=== PATIENT | female | born 1950 | race Caucasian/White ===

== ENCOUNTER 2017-05-02 21:07 | Inpatient (IN) | payer OTHER, MEDICARE ==
[~2017-05-02] VITALS: Ht 154.9 cm; Wt 57.2 kg
[2017-05-02 21:10] VITALS: BP_SYST 134
[2017-05-02] MEDS ORDERED: NIFE-2 PO (21:30)
[2017-05-02] MEDS ORDERED: NACL 0.9% 1,000 ML IV ONE (21:30)
[2017-05-02] MEDS ORDERED: BUPR-120 PO (21:31)
[2017-05-02] MEDS ORDERED: ALPR0.5T96 PO (21:31)
[2017-05-02] MEDS ORDERED: LEVO100T9 PO (21:35)
[2017-05-02 21:57] LABS: EOSINOPHILS % (AUTO) 0.1 % (0.0-4.0); HEMOGLOBIN 11.1 g/dL (12.0-16.0); LYMPHOCYTES # (AUTO) 0.4 K/uL (1.0-5.5); LYMPHOCYTES % (AUTO) 4.9 % (20.5-51.5); MEAN CORPUSCULAR HEMOGLOBIN 33 pg (27-31); MEAN CORPUSCULAR HGB CONC 34 % (32-36); MEAN CORPUSCULAR VOLUME 97 fL (79.0-98.0); MONOCYTES # (AUTO) 0.6 K/uL (0.0-1.0); MONOCYTES % (AUTO) 7.4 % (1.7-9.3); NEUTROPHILS # (AUTO) 7.2 K/uL (1.8-7.7); NEUTROPHILS % (AUTO) 87.6 % (40.0-70.0); PLATELET COUNT (AUTO) 115 K/uL (130-430); RED BLOOD CELL COUNT(AUTO) 3.39 MIL/uL (4.2-6.2); RED CELL DISTRIBUTION WIDTH 12.4 % (9.0-15.0); WHITE BLOOD COUNT (AUTO) 8.2 K/uL (4.8-10.8)
[2017-05-02 21:58] LABS: CREATININE 1.45 mg/dL (0.55-1.30); POTASSIUM 4.1 mmol/L (3.5-5.1)
[2017-05-02 22:03] LABS: ALBUMIN 3.4 g/dL (3.4-4.8); TOTAL BILIRUBIN 0.3 mg/dL (0.0-1.0)
[2017-05-02 22:17] LABS: PROTHROMBIN TIME 10.2 SECS (9.5-12.5)
[2017-05-02] MEDS ORDERED: IPRATROPIUM/ALBUTEROL SULFATE 3 ML AMPUL.NEB INH ONE (22:30)
[2017-05-02 23:28] LABS: BILIRUBIN,URINE NEGATIVE (NEGATIVE); BLOOD, URINE TRACE (NEGATIVE); CLARITY/URINE CLEAR (CLEAR); COLOR,URINE YELLOW (YELLOW); GLUCOSE,URINE NEGATIVE (NEGATIVE); KETONES,URINE NEGATIVE (NEGATIVE); LEUKOCYTE ESTERASE ,URINE 2+ (NEGATIVE); NITRITE, URINE NEGATIVE (NEGATIVE); PH,URINE 5.5 (5.0-8.0); PROTEIN URINE NEGATIVE (NEGATIVE); UROBILINOGEN,URINE 0.2 (0.2-1.0)
[2017-05-02 23:36] LABS: BACTERIA,URINE MODERATE /HPF (None Seen)
[2017-05-03] VITALS (7 sets, daily range): BP systolic 136–185
[2017-05-03] MEDS ORDERED: ENOXAPARIN SODIUM 60 MG/0.6 ML SYRINGE SUBCUT ONE
[2017-05-03] MEDS ORDERED: ACETAMINOPHEN 325 MG TABLET PO ONE
[2017-05-03] MEDS ORDERED: ALPRAZolam 0.25 MG TABLET PO PRN (00:15)
[2017-05-03] MEDS ORDERED: ACETAMINOPHEN 325 MG TABLET PO PRN (00:15)
[2017-05-03] MEDS ORDERED: LEVOTHYROXINE SODIUM 0.1 MG TABLET PO ONE (10:00)
[2017-05-03] MEDS ORDERED: FAMOTIDINE 20 MG TABLET PO ONE (10:00)
[2017-05-03] MEDS ORDERED: buPROPion HCL 150 MG XL TAB PO ONE (10:00)
[2017-05-03] MEDS ORDERED: methylPREDNISolone SOD SUCC/PF 62.5 MG/ML VIAL IVP ONE (13:30)
[2017-05-03] MEDS ORDERED: LEVOFLOXACIN 500 MG/D5W 100 ML IV ONE ×2 (14:00)
[2017-05-03] MEDS ORDERED: LEVOFLOXACIN 250 MG/D5W 50 ML IV ONE (14:00)
[2017-05-03 15:10] LABS: BASOPHILS % (AUTO) 0.1 % (0.0-2.0); EOSINOPHILS % (AUTO) 0.3 % (0.0-4.0); HEMATOCRIT 34.6 % (36-48); HEMOGLOBIN 11.3 g/dL (12.0-16.0); LYMPHOCYTES % (AUTO) 18.2 % (20.5-51.5); MEAN CORPUSCULAR HEMOGLOBIN 32 pg (27-31); MEAN CORPUSCULAR HGB CONC 33 % (32-36); MEAN CORPUSCULAR VOLUME 97 fL (79.0-98.0); MONOCYTES # (AUTO) 0.6 K/uL (0.0-1.0); MONOCYTES % (AUTO) 11.4 % (1.7-9.3); NEUTROPHILS # (AUTO) 3.9 K/uL (1.8-7.7); PLATELET COUNT (AUTO) 116 K/uL (130-430); RED BLOOD CELL COUNT(AUTO) 3.56 MIL/uL (4.2-6.2); RED CELL DISTRIBUTION WIDTH 12.4 % (9.0-15.0); WHITE BLOOD COUNT (AUTO) 5.5 K/uL (4.8-10.8)
[2017-05-03] MEDS: NACL 0.9% 1,000 ML IV SCH (15:16)
[2017-05-03 16:00] LABS: ALBUMIN 3.3 g/dL (3.4-4.8); CALCIUM 9.1 mg/dL (8.4-11.0); CREATININE 1.09 mg/dL (0.55-1.30); POTASSIUM 3.8 mmol/L (3.5-5.1); THYROID STIMULATING HORMONE 0.87 uIu/mL (0.34-4.82); TOTAL BILIRUBIN 0.3 mg/dL (0.0-1.0)
[2017-05-03 16:05] LABS: TOTAL IRON BIND. CAPACITY 341 ug/dL (250-450)
[2017-05-03] MEDS ORDERED: IPRATROPIUM BROM 0.5 MG/2.5 ML VIAL.NEB (ATROVENT) INH PRN (18:15)
[2017-05-03] MEDS ORDERED: ALBUTEROL SULFATE 0.083% 2.5 MG/3 ML VIAL.NEB INH PRN (18:15)
[2017-05-03] MEDS: methylPREDNISolone SOD SUCC 40 MG/ML VIAL IVP SCH (21:58)
[2017-05-03] MEDS: ALPRAZolam 0.25 MG TABLET PO PRN (21:59)
[2017-05-04] MEDS: IPRATROPIUM/ALBUTEROL SULFATE 3 ML AMPUL.NEB INH SCH ×4 (01:01→19:45)
[2017-05-04] MEDS: methylPREDNISolone SOD SUCC 40 MG/ML VIAL IVP SCH ×3 (05:44→22:00)
[2017-05-04] MEDS: LEVOTHYROXINE SODIUM 0.1 MG TABLET PO SCH (05:44)
[2017-05-04] MEDS: NACL 0.9% 1,000 ML IV SCH (05:44)
[2017-05-04 07:35] LABS: FOLATE (FOLIC ACID) 11.6 ng/mL (>3.0)
[2017-05-04] MEDS: buPROPion HCL 150 MG XL TAB PO SCH (08:55)
[2017-05-04] MEDS: FAMOTIDINE 20 MG TABLET PO SCH (08:55)
[2017-05-04 08:57] VITALS: BP_SYST 150
[2017-05-04] MEDS ORDERED: LEVOFLOXACIN 250 MG/D5W 50 ML IV SCH (09:00)
[2017-05-04 11:24] VITALS: BP_SYST 151
[2017-05-04] MEDS: ALPRAZolam 0.25 MG TABLET PO PRN ×2 (13:51→22:07)
[2017-05-04] MEDS ORDERED: CITALOPRAM HYDROBROMIDE 20 MG TABLET PO ONE (15:30)
[2017-05-04] MEDS ORDERED: CYANOCOBALAMIN 1000 mCg TABLET PO ONE (15:30)
[2017-05-04] MEDS ORDERED: FOLIC ACID 1 MG TABLET PO ONE (15:45)
[2017-05-04 16:00] VITALS: BP_SYST 151
[2017-05-04 20:00] VITALS: BP_SYST 151
[2017-05-05] VITALS: BP_SYST 155
[2017-05-05] MEDS: IPRATROPIUM/ALBUTEROL SULFATE 3 ML AMPUL.NEB INH SCH ×3 (01:28→13:00)
[2017-05-05] MEDS: LEVOTHYROXINE SODIUM 0.1 MG TABLET PO SCH (06:00)
[2017-05-05] MEDS: methylPREDNISolone SOD SUCC 40 MG/ML VIAL IVP SCH (06:00)
[2017-05-05 08:30] VITALS: BP_SYST 124
[2017-05-05] MEDS ORDERED: CITALOPRAM HYDROBROMIDE 20 MG TABLET PO SCH (09:00)
[2017-05-05] MEDS ORDERED: CYANOCOBALAMIN 1000 mCg TABLET PO SCH (09:00)
[2017-05-05] MEDS ORDERED: FOLIC ACID 1 MG TABLET PO SCH (09:00)
[2017-05-05] MEDS: FAMOTIDINE 20 MG TABLET PO SCH (09:51)
[2017-05-05] MEDS: buPROPion HCL 150 MG XL TAB PO SCH (09:52)
[2017-05-05] MEDS: ALPRAZolam 0.25 MG TABLET PO PRN (09:54)
[2017-05-05] MEDS ORDERED: LEVO250T20 PO ×2 (14:14→14:41)
[2017-05-05] MEDS ORDERED: PRED20TA PO (14:16)
[2017-05-05] MEDS ORDERED: ALBMDI INH (14:17)
[2017-05-05 14:45] VITALS: BP_SYST 132
[2017-05-06] MEDS ORDERED: PREDNISONE 20 MG TABLET PO SCH (09:00)
== END 2017-05-05 15:03 | disposition home or self-care (01) | DRG 682 ==
LOC: SED 21:07 → STU 05-03 00:03 → SMU 05-04 13:40
PROVIDERS: ADMIT Internal Medicine; ATTEND Internal Medicine
DX: N17.0 Acute kidney failure with tubular necrosis (principal); J18.9 Pneumonia, unspecified organism; D69.6 Thrombocytopenia, unspecified; J44.0 Chronic obstructive pulmonary disease with (acute) lower respiratory infection; N39.0 Urinary tract infection, site not specified; J44.1 Chronic obstructive pulmonary disease with (acute) exacerbation; R09.02 Hypoxemia; D64.9 Anemia, unspecified; F32.9 Major depressive disorder, single episode, unspecified; Z66 Do not resuscitate; R22.2 Localized swelling, mass and lump, trunk; E03.9 Hypothyroidism, unspecified; F17.210 Nicotine dependence, cigarettes, uncomplicated; I10 Essential (primary) hypertension; Z85.72 Personal history of non-Hodgkin lymphomas; Z90.710 Acquired absence of both cervix and uterus; Z79.899 Other long term (current) drug therapy
CPT/HCPCS: 36415; 36600; 71045; 71250-TC; 76770; 78579; 78580-TC; 80053; 81000-TC; 82607; 82746; 82803-TC; 83540-TC; 83550-TC; 83605; 83880; 84443-TC; 84484; 85025; 85379; 85610-TC; 85730-TC; 86710; 87040-TC; 87086; 93005; 94640; 94760; 96361; 96365; 96372; 99285; A9539; A9540; J1030; J1650; J1956; J2930; J7030; J7042

== ENCOUNTER 2018-05-16 19:07 | Emergency (ER) | payer OTHER, MEDICARE ==
[~2018-05-16] VITALS: Ht 152.4 cm; Wt 54.4 kg
[~2018-05-16 19:07] MED LIST: ALBMDI INH; ALPR0.5T PO; BUPR-120 PO; LEVO100T9 PO; LEVO250T2 PO; NIFE-2 PO; PRED20TA PO
[2018-05-16 19:08] VITALS: BP_SYST 147
--- NOTE | 2018-05-16 19:08 | NUR ---
1908 - Patient to ER bed 3 to gown for evaluation. Side rails up.
--- NOTE | 2018-05-16 19:10 | NUR ---
Pt BIB BLS C/O N/V S/P fall. Pt states she has had two [place] ice teas after dinner. Family witnessed fall -KO, -trauma, -pain. Vital signs are stable, pt denies any other symptoms at this time. Will continue to monitor.
--- NOTE | 2018-05-16 20:02 | NUR ---
ER Dr. Soliman at bedside examining patient.
[2018-05-16] MEDS: ONDANSETRON 4 MG ODT TAB PO ONE (20:17)
--- NOTE | 2018-05-16 21:00 | NUR ---
Pt resting quietly in bed, no acute distress noted at this time. Will continue to monitor
[2018-05-16 21:25] VITALS: BP_SYST 135
--- NOTE | 2018-05-16 21:30 | NUR ---
Patient given written and verbal discharge instructions and verbalizes understanding. ER MD discussed with patient the results and treatment provided. Patient in stable condition. ID arm band removed. No Rx given. Patient educated on pain management and to follow up with PMD. Pain Scale 0/10. Opportunity for questions provided and answered. Medication side effect fact sheet provided.
== END 2018-05-16 21:30 | disposition home or self-care (01) ==
LOC: SED 19:07
DX: S00.03XA Contusion of scalp, initial encounter (principal); R11.10 Vomiting, unspecified; K21.9 Gastro-esophageal reflux disease without esophagitis; I10 Essential (primary) hypertension; F17.200 Nicotine dependence, unspecified, uncomplicated; Z79.899 Other long term (current) drug therapy; Z88.1 Allergy status to other antibiotic agents; W01.198A Fall on same level from slipping, tripping and stumbling with subsequent striking against other object, initial encounter; Y93.89 Activity, other specified; Y92.89 Other specified places as the place of occurrence of the external cause; Y99.8 Other external cause status
CPT/HCPCS: 70450; 99284; Q0162